=== PATIENT | female | born 2000 | race Caucasian/White ===

== ENCOUNTER 2024-03-24 11:30 | Observation (INO) | payer MEDICAID, OTHER ==
[2024-03-24 12:33] LABS: Fern Testing Negative
[2024-03-24] MEDS ORDERED: PREN-96 PO (13:02)
== END 2024-03-24 13:54 | disposition home or self-care (01) ==
LOC: UNDOADMOB 11:30 → LDRP 11:30
PROVIDERS: ADMIT Obstetrics & Gynecology; ATTEND Obstetrics & Gynecology
DX: O42.92 Full-term premature rupture of membranes, unspecified as to length of time between rupture and onset of labor (principal); O62.9 Abnormality of forces of labor, unspecified; O26.893 Other specified pregnancy related conditions, third trimester; N89.8 Other specified noninflammatory disorders of vagina; Z3A.38 38 weeks gestation of pregnancy
CPT/HCPCS: 59025; 76818; 81002; 94760; G0378; Q0114

== ENCOUNTER 2024-04-08 05:11 | Observation (INO) | payer MEDICAID ==
[~2024-04-08 05:11] MED LIST: PREN-96 PO
== END 2024-04-08 12:31 | disposition home or self-care (01) ==
LOC: LDRP 10:05
PROVIDERS: ADMIT Obstetrics & Gynecology; ATTEND Obstetrics & Gynecology
DX: O48.0 Post-term pregnancy (principal); O26.893 Other specified pregnancy related conditions, third trimester; N89.8 Other specified noninflammatory disorders of vagina; Z3A.40 40 weeks gestation of pregnancy
CPT/HCPCS: 59025; 76818; 81002; G0378

== ENCOUNTER 2024-04-10 19:25 | Observation (INO) | payer MEDICAID ==
[~2024-04-10] VITALS: Ht 162.6 cm; Wt 88.5 kg
== END 2024-04-10 22:03 | disposition home or self-care (01) ==
LOC: LDRP 19:25
PROVIDERS: ADMIT Obstetrics & Gynecology; ATTEND Obstetrics & Gynecology
DX: O48.0 Post-term pregnancy (principal); Z3A.40 40 weeks gestation of pregnancy; Z79.899 Other long term (current) drug therapy; Z98.890 Other specified postprocedural states
CPT/HCPCS: 59025; 76818; 94760; G0378

== ENCOUNTER 2024-04-12 08:28 | Inpatient (IN) | payer MEDICAID ==
[~2024-04-12] VITALS: Ht 165 cm; Wt 89.4 kg
[2024-04-12] MEDS ORDERED: BUTORPHANOL TARTRATE 2 MG/1 ML VIAL IV PRN (18:00)
[2024-04-12] MEDS ORDERED: LIDOCAINE 2%HCL (LOCAL ANESTH.) INJ 20ML MDV IJ PRN (18:00)
[2024-04-12 19:18] LABS: Basophils # (auto) 0 10 ^3/uL (0-0.2); Basophils % (auto) 0.2 % (0.0-2.0); Eosinophils # (auto) 0.1 10 ^3/uL (0-0.8); Eosinophils % (auto) 0.5 % (0.0-7.0); Hematocrit 37.1 % (36.0-46.0); Hemoglobin 12.3 g/dL (12.2-16.2); Lymphocytes # (auto) 2.3 10 ^3/uL (0.4-5.4); Lymphocytes % (auto) 20.8 % (10.0-50.0); Mean Corpuscular Hemoglobin 27.5 pg (28.0-32.0); Mean Corpuscular Hgb Conc. 33.1 g/dL (32.0-36.0); Mean Corpuscular Volume 82.9 fL (80.0-100.0); Monocytes # (auto) 0.7 10 ^3/uL (0-1.3); Monocytes % (auto) 6.4 % (0.0-12.0); Neutrophils # (auto) 8.1 10 ^3/uL (1.6-8.6); Neutrophils % (auto) 72.1 % (37.0-80.0); Nucleated Red Blood Cells % 0.1 %; Red Blood Cells 4.47 10^6/uL (4.0-5.20); Red Cell Distribution Width 14.5 % (11.8-14.3); White Blood Cell 11.3 10^3/uL (4.4-10.8)
[2024-04-12 19:32] LABS: Alanine Aminotransferase 10 U/L (7-40); Albumin 3.8 g/dL (3.2-4.8); Alkaline Phosphatase 128 U/L (46-116); Anion Gap 9 (5-15); Aspartate Aminotransferase 12 U/L (13-40); Calcium 9.4 mg/dL (8.5-10.1); Carbon Dioxide 19 mmol/L (20-30); Chloride 109 mmol/L (98-107); Glucose 89 mg/dL (74-106); Potassium 3.8 mmol/L (3.5-5.1); Sodium 137 mmol/L (136-145)
[2024-04-12 19:33] LABS: Bilirubin, Total 0.3 mg/dL (0.2-1.0); Total Protein 6.5 g/dL (5.7-8.2)
[2024-04-12 19:35] LABS: BUN/Creatinine Ratio 9.3 (10.0-20.0); Blood Urea Nitrogen < 5 mg/dL (9-23)
[2024-04-12 19:36] LABS: INR 0.92 (0.9-1.15); Partial Thromboplastin Time 23.2 SEC (24.5-34.5); Prothrombin Time 9.8 sec (9.3-11.8)
[2024-04-12] MEDS: LACTATED RINGER'S 1,000 ML IV SCH (19:43)
[2024-04-12] MEDS: PENICILLIN G POT 5MIL/D5 50ML 50 ML IV ONE (20:38)
[2024-04-12 21:48] LABS: Urine Bacteria FEW /hpf (None Seen); Urine Blood Negative /uL (Negative); Urine Clarity Turbid (Clear); Urine Color Colorless (Yellow); Urine Protein, UAD Negative (Negative); Urine Specific Gravity 1.008 (1.001-1.035); Urine Urobilinogen Normal (Negative); Urine WBC 17 /hpf (0 - 5)
[2024-04-12 21:59] LABS: Amphetamine Screen, Urine Neg (NEGATIVE); Barbiturate Scree,Urine Neg (NEGATIVE); Benzodiazephine Screen, Urine Neg (NEGATIVE)
[2024-04-12 22:00] LABS: Cannabinoid Screen, Urine Neg (NEGATIVE); Cocaine Screen, Urine Neg (NEGATIVE); Opiate Scree,Urine Neg (NEGATIVE); Phencyclidine Screen, Urine Neg (NEGATIVE)
[2024-04-13] MEDS: PENICILLIN G POTASSIUM 2,500,000 UNITS in D5W 5% 50 ML IV SCH (00:27)
[2024-04-13] MEDS: WITCH HAZEL-GLYCERIN PAD TOP PRN (00:27)
[2024-04-13] MEDS: PHISODERM TOP SOLN 240ML BTL TOP PRN (00:27)
[2024-04-13] MEDS: DERMOPLAST 60ML BOTTLE TOP PRN (00:27)
[2024-04-13] MEDS: miSOPROStol 50 MCG per PRE-CUT 1/2 TAB PO PRN (01:06)
[2024-04-13] MEDS: BUTORPHANOL TARTRATE 2 MG/1 ML VIAL IV PRN (04:43)
[2024-04-13] MEDS: NALOXONE HCL 0.4 MG/ML VIAL IV ONE (06:15)
[2024-04-13] MEDS: ceFAZolin 2 GM/D5W50ml 50 ML IV ONE (16:16)
[2024-04-13] MEDS: ACETAMINOPHEN 500 MG TAB PO ONE (16:16)
[2024-04-13] MEDS ORDERED: ACETAMINOPHEN 325 MG TAB PO PRN (17:45)
[2024-04-13] MEDS ORDERED: ONDANSETRON ODT 4 MG TAB PO PRN (17:45)
[2024-04-13] MEDS: IBUPROFEN 600 MG TAB PO PRN (18:07)
[2024-04-13] MEDS: LACT. RINGERS/OXYTOCIN 20UNITS 500 ML IV ONE ×2 (18:19→18:20)
[2024-04-13] MEDS: fentaNYL CITRATE 100 MCG/2 ML VL IV ONE (18:21)
[2024-04-13] MEDS: ROPIVACAINE HCL 200 ML ONE (18:24)
[2024-04-13] MEDS: ePHEDrine SULFATE 50 MG/ML AMP IV ONE (18:25)
[2024-04-13 19:00] VITALS: BP 112/80; PULSE 104; RESP 18; TEMP 99.1; O2SAT 96
[2024-04-13] MEDS: LIDOCAINE HCL 2 %PF INJ 10ML AMP IJ ONE (19:03)
[2024-04-13] MEDS: Lidocaine W-Epinephrine 1.5%-1:200,000 INJ 10ml Vial ONE (19:03)
[2024-04-13] MEDS: LACTATED RINGER'S 1,000 ML IV ONE (19:05)
[2024-04-13] MEDS: DOCUSATE SOD 100 MG CAP PO SCH (22:04)
[2024-04-13 23:00] VITALS: BP 128/82; PULSE 109; RESP 17; TEMP 98.5; O2SAT 97
[2024-04-14] MEDS: MEASLES, MUMPS & RUBELLA VAC(MMRII) 0.5ML SC ONE (02:15)
[2024-04-14] MEDS: ceFAZolin 1GM/50ML 50 ML IV SCH (02:43)
[2024-04-14 03:15] VITALS: BP 122/81; PULSE 99; RESP 17; TEMP 98.1; O2SAT 97
[2024-04-14 06:06] LABS: RPR Non Reactive (Non Reactive)
[2024-04-14 07:06] VITALS: BP 124/73; PULSE 88; RESP 17; TEMP 98.5; O2SAT 96
[2024-04-14 10:55] VITALS: BP 120/72; PULSE 94; RESP 17; TEMP 98.4; O2SAT 98
[2024-04-14 14:39] VITALS: BP 125/68; PULSE 85; RESP 17; TEMP 98.6; O2SAT 98
[2024-04-14 19:00] VITALS: BP 131/75; PULSE 84; RESP 18; TEMP 98.6; O2SAT 97
[2024-04-14 23:00] VITALS: BP 112/68; PULSE 64; RESP 16; TEMP 98.5; O2SAT 98
[2024-04-15 03:03] VITALS: BP 119/75; PULSE 74; RESP 16; TEMP 97.8; O2SAT 97
[2024-04-15 07:00] VITALS: BP 126/92; PULSE 54; RESP 18; TEMP 99.4; O2SAT 98
[2024-04-15 09:52] VITALS: BP 128/85; PULSE 67; TEMP 98.4
[2024-04-16 19:06] LABS: Treponema pallidum Ab (FTA-Ab) Non Reactive (Non Reactive)
== END 2024-04-15 10:45 | disposition home or self-care (01) | DRG 560 ==
LOC: UNDOADMOB 16:04 → LDRP 16:04 → OBSVTOIN 17:45 → INTOOBSV 17:45 → OBSVTOIN 17:47 → LDRP 17:47
PROVIDERS: ADMIT Obstetrics & Gynecology; ATTEND Obstetrics & Gynecology
PROC: 10E0XZZ Delivery of Products of Conception, External Approach (ICD-10-PCS; principal; 2024-04-13)
PROC: 3E0DXGC Introduction of Other Therapeutic Substance into Mouth and Pharynx, External Approach (ICD-10-PCS; 2024-04-13)
PROC: 3E0R3BZ Introduction of Anesthetic Agent into Spinal Canal, Percutaneous Approach (ICD-10-PCS; 2024-04-13)
PROC: 00HU33Z Insertion of Infusion Device into Spinal Canal, Percutaneous Approach (ICD-10-PCS; 2024-04-13)
PROC: 0HQ9XZZ Repair Perineum Skin, External Approach (ICD-10-PCS; 2024-04-13)
PROC: 0UQMXZZ Repair Vulva, External Approach (ICD-10-PCS; 2024-04-13)
DX: O48.0 Post-term pregnancy (principal); Z37.0 Single live birth; O70.0 First degree perineal laceration during delivery; O99.824 Streptococcus B carrier state complicating childbirth; Z3A.40 40 weeks gestation of pregnancy; O71.82 Other specified trauma to perineum and vulva
CPT/HCPCS: 36415; 59025; 59200; 59409; 62282; 76818; 80053; 80307; 81001; 81002; 85025; 85610; 85730; 86592; 86850; 86900; 86901; 94760; 94762; 96360; 96361; 96365; 96366; 96372; 96374; G0378; J2540; J2590; J7060

== ENCOUNTER 2025-09-03 16:32 | Emergency (ER) | payer MEDICAID ==
[~2025-09-03] VITALS: Ht 162.6 cm; Wt 89.7 kg
[2025-09-03 16:57] LABS: Hematocrit 42.5 % (36.0-46.0); Hemoglobin 14.6 g/dL (12.2-16.2); Mean Corpuscular Hemoglobin 28.8 pg (28.0-32.0); Mean Corpuscular Volume 83.9 fL (80.0-100.0); Nucleated Red Blood Cells % 0.1 %
[2025-09-03 17:15] LABS: Alanine Aminotransferase 12 U/L (7-40); Albumin 4.1 g/dL (3.2-4.8); Alkaline Phosphatase 66 U/L (46-116); Anion Gap 11 (5-15); BUN/Creatinine Ratio 10.4 (10.0-20.0); Calcium 9.1 mg/dL (8.7-10.4); Carbon Dioxide 23 mmol/L (20-31); Chloride 106 mmol/L (98-107); Potassium 3.7 mmol/L (3.5-5.1); Sodium 140 mmol/L (136-145); Total Protein 6.9 g/dL (5.7-8.2)
--- NOTE | 2025-09-03 17:45 | DVH ---
RENAL ULTRASOUND History: L flank Comparison: None Technique: Multiple real-time sonographic images of the kidney and bladder were obtained in conjunction with Doppler imaging. Findings: The right kidney measures 11.4 cm and demonstrates no evidence of hydronephrosis, perinephric fluid collection, or shadowing stone. The left kidney measures 11.6 cm and demonstrates no evidence of hydronephrosis, perinephric fluid collection, or shadowing stone. Urinary bladder: Decompressed by Worrell catheter. Impression: No sonographic for hydronephrosis.
[2025-09-03 17:58] LABS: Bilirubin, Total 0.3 mg/dL (0.2-1.0); Blood Urea Nitrogen 7 mg/dL (9-23); Glucose 113 mg/dL (74-106)
[2025-09-03 17:58] LABS: Urine Amorphous Crystal FEW /hpf (None Seen); Urine Protein, UAD Negative (Negative)
[2025-09-03 18:08] LABS: Lactic Acid w/Reflex 2.1 mmol/L (0.4-2.0)
--- NOTE | 2025-09-03 18:15 | ED.PDOC ---
General HPI Comments HPI: 24 y/o F, presents to the ED for CC of abdominal pain. Patient states, that she has been experiencing LUQ abdominal pain onset, 0500 this morning (09/03/25). Patient reports, that she was seen yesterday by her PCP and was told to be [id number] ; unsure if symptoms maybe related. 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 Patient denies active bleeding, hematuria, fever, chills, nausea, or vomiting. No other symptoms or modifying factors are present at this time. Denies any fall or trauma. Patient has a appointment with her doctor Mary in few days. Initial Vitals BP: HR: RR: O2 Sat: Temp: Past Medical history: DENIES ANY Past Surgical history: DENIES ANY Medications: DENIES ANY Social History: Denies smoking, ETOH, and drug use. Allergies: NKDA HPI: Poor Historian. Pain has essentially resolved prior to my evaluation. Patient is here just to make sure that her is okay in the setting of this left upper quadrant pain that started yesterday but has a essentially resolved by the time I went to see the patient. REVIEW OF SYSTEMS: CONSTITUTIONAL: Denies acute: fever, diaphoresis, chills, generalized weakness. HEAD: Denies acute: headache, photophobia Eyes: Denies acute: Double vision, vision loss, eye pain, eye discharge. EARS: Denies acute: tinnitus, hearing loss, ear discharge, ear pain, THROAT: Denies acute: sore throat, swelling, difficulty swallowing , pain with swallowing, change in voice. NECK: Denies acute: neck pain, neck swelling, stiff neck. HEART: Denies acute : chest pain, palpitations, LUNGS: Denies acute: SOB, wheezing, cough, hemoptysis ABDOMEN: Denies acute: Nausea, Vomiting, diarrhea, melena , hematemesis, hematochezia SKIN: Denies acute: rash, redness, lesions, itchiness. EXTREMITIES: Denies acute: calf pain, numbness, tingling, weakness, denies pain in extremity. Denies acute: Low back pain. Neuro: Denies acute: focal neurological deficit, motor or sensory focal neurological deficit, tremors, seizure like activity, confusion, dizziness, change in mental status, loss of bowel or bladder function, cauda equina like symptoms. : Denies acute: dysuria, hematuria, flank pain, increase in urinary frequency. PSYCH: Denies acute: hallucination, suicidal ideation, homicidal ideation. FEMALE: Denies acute: abnormal vaginal bleeding, foul odor, unusual discharge. PHYSICAL EXAM: General: ----no----acute distress, awake and alert. Head: normocephalic, atraumatic. No raccoon's eyes, no matute sign. Neck: supple, trachea is midline, no swelling. Throat: Normal phonation. Eyes:, no erythema, no purulent discharge, no proptosis, no icterus. Heart: regular rate, regular rhythm, no significant murmur appreciated. Lungs: no apparent respiratory distress, Able to speak in full sentences. No wheezing, no rhonchi, no crackles. No stridors Clear to auscultation bilaterally. Abdomen: Focal left upper quadrant tender to palpation, non distended, soft, no guarding, no rebound, + bowel sounds. Patient has absolutely no lower quadrant or pelvic pain or tenderness to palpation. Neuro: Awake, Alert, oriented to name, self, situation, follows commands GCS=15. Speech is normal. Skin: no petechia, no purpura, no cyanosis, non-pale, not jaundice. Lower extremities: --no - Pitting edema no deformity, no focal swelling, no calf TTP. Makes eye contact. moves all four extremities. Face: no apparent facial droop. No CVA tenderness to percussion bilaterally. Ambulating in the ED independently. ED COURSE: DISCLAIMER: This medical document was created using an electronic medical record system with voice recognition software and computerized dictation system. Although this document has been carefully reviewed, there might still be some phonetic and typographical errors. Occasional wrong-word or "sound-alike" substitutions may have occurred due to the inherent limitations of voice recognition software. These areas are purely typographical due to imperfections of the software programs and do not reflect any compromise in the patient's medical care. Please read the chart carefully and recognize, using context, where these substitutions have occurred. Chief Complaint: Flank Pain Time Seen by MD: 18:25 Reviewed notes: Nurses Notes, Medications, Allergies Allergies: Coded Allergies: NO KNOWN ALLERGIES (Unverified , 04/10/24) Home Meds Active Scripts Cephalexin Monohydrate (Cephalexin) 500 Mg Cap, 500 MG PO Q8HR for 5 Days, #15 CAP Prov:CONSTANCE GALLARDO DO 09/03/25 Reported Medications Vit W/ Ferrous Fumara ( One Daily) Daily Tab, 1 TAB PO DAILY, #90 TAB 3 Refills 03/24/24 Information Source: Patient Mode of Arrival: Ambulatory Prehospital treatment: None History of: None Location: (R) Flank, (L)Flank Modifying factors: None associated signs and symptoms: None Was a procedure done? Was a procedure done?: No Differential Diagnosis Kidney stone (Female): Other (DDX include Diverticulitis, colitis, gastroenteritis, acute abdomen, SBO, enteritis, constipation, volvulus, appendicitis, Gallbladder disease, choledocolithiasis, ascending cholangitis, p ancreatitis, intraAbdominal mass/neoplasm, hepatitis, UTI, pylonephritis, kidney stone, aneurysm, dissection, Inflammatory bowel disease, gastroparesis, ischemic bowel,,,,,,Food poisoning, bacterial/parasitic/viral etiology, trauma, diabetes DKA,ovarian torsion, ovarian cyst/mass, tubo-ovarian abscess, , ectopic , PID, STD.) Urinary Problem (Female): Intrauterine , Urolithiasis, UTI X-Ray, Labs, Meds, VS Vital Signs Date Time Temp Pulse Resp B/P (MAP) Pulse Ox O2 Delivery O2 Flow Rate FiO2 09/03/25 20:37 98.4 111 18 137/83 (101) 99 98.4 09/03/25 17:25 98.4 96 18 157/88 (111) 100 98.4 09/03/25 17:25 Room Air* 0 21 09/03/25 17:25 96 18 100 Room Air 09/03/25 16:34 97.5 96 16 146/98 99 97.5 Lab Test 09/03/25 19:12 09/03/25 17:16 09/03/25 16:46 Range/Units Lactic Acid Level 1.6 2.1 *H 0.4-2.0 mmol/L Urine Color Colorless Yellow Urine Clarity Clear Clear Urine pH 6.5 5.0-9.0 Urine Specific Cameron 1.009 1.001-1.035 Urine Protein Negative Negative Urine Ketones Negative Negative Urine Blood Negative Negative /uL Urine Nitrite Negative Negative Urine Bilirubin Negative Negative Urine Urobilinogen Normal Negative mg/dL Urine Leukocyte Esterase Negative Negative /uL Urine RBC <1 0 - 4 /hpf Urine Microscopic WBC 1 0-5 /HPF Urine Squamous Epithelial Cells Few <5 /hpf Urine Amorphous Crystals Few None Seen /hpf Urine Bacteria Few H None Seen /hpf Urine Glucose Normal Normal mg/dL White Blood Count 12.3 H 4.4-10.8 10^3/uL Red Blood Count 5.07 4.0-5.20 10^6/uL Hemoglobin 14.6 12.2-16.2 g/dL Hematocrit 42.5 36.0-46.0 % Mean Corpuscular Volume 83.9 80.0-100.0 fL Mean Corpuscular Hemoglobin 28.8 28.0-32.0 pg Mean Corpuscular Hemoglobin Concent 34.3 32.0-36.0 g/dL Red Cell Distribution Width 13.1 11.8-14.3 % Platelet Count 301 140-450 10^3/uL Mean Platelet Volume 7.2 6.9-10.8 fL Neutrophils (%) (Auto) 69.4 37.0-80.0 % Lymphocytes (%) (Auto) 22.4 10.0-50.0 % Monocytes (%) (Auto) 6.4 0.0-12.0 % Eosinophils (%) (Auto) 1.1 0.0-7.0 % Basophils (%) (Auto) 0.7 0.0-2.0 % Neutrophils # (Auto) 8.5 1.6-8.6 10 ^3/uL Lymphocytes # (Auto) 2.8 0.4-5.4 10 ^3/uL Monocytes # (Auto) 0.8 0-1.3 10 ^3/uL Eosinophils # (Auto) 0.1 0-0.8 10 ^3/uL Basophils # (Auto) 0.1 0-0.2 10 ^3/uL Nucleated Red Blood Cells 0.1 % Sodium Level 140 136-145 mmol/L Potassium Level 3.7 3.5-5.1 mmol/L Chloride Level 106 98-107 mmol/L Carbon Dioxide Level 23 20-31 mmol/L Anion Gap 11 5-15 Blood Urea Nitrogen 7 L 9-23 mg/dL Creatinine 0.67 0.550-1.02 mg/dL Glomerular Filtration Rate Calc 127 >90 mL/min BUN/Creatinine Ratio 10.4 10.0-20.0 Serum Glucose 113 H 74-106 mg/dL Calcium Level 9.1 8.7-10.4 mg/dL Total Bilirubin 0.3 0.2-1.0 mg/dL Aspartate Amino Transferase (AST) 14 13-40 U/L Alanine Aminotransferase (ALT) 12 7-40 U/L Alkaline Phosphatase 66 46-116 U/L Total Protein 6.9 5.7-8.2 g/dL Albumin 4.1 3.2-4.8 g/dL [place] [id number] Ph: [phone] DIAGNOSTIC IMAGING Diagnostic Imaging Report : [id number] Signed PATIENT: WILD ELIZALDE ACCT: [id number] UNIT: [id number] : 2000 LOC: ER ROOM / BED: / AGE / SEX: 24 / F ADM STATUS: REG ER SERVICE 1641 ORDERING PHYSICIAN: CONSTANCE GALLARDO DO PROCEDURE(s): KIDUS - KIDNEY REASON: L flank ORDER NUMBER(s): [id number], ACCESSION NUMBER(s): [id number] RENAL ULTRASOUND History: L flank Comparison: None Technique: Multiple real-time sonographic images of the kidney and bladder were obtained in conjunction with Doppler imaging. Findings: The right kidney measures 11.4 cm and demonstrates no evidence of hydronephrosis, perinephric fluid collection, or shadowing stone. The left kidney measures 11.6 cm and demonstrates no evidence of hydronephrosis, perinephric fluid collection, or shadowing stone. Urinary bladder: Decompressed by Worrell catheter. Impression: No sonographic for hydronephrosis. ATED BY: TOMMIE MAURICE MD DICTATED DATE/TIME: 09/03/251747 SIGNED BY: TOMMIE MAURICE MD SIGNED DATE/TIME: 09/03/251747 CC: Time of 1ST Reevaluation: 18:55 Reevaluation 1ST: Unchanged Patient Education/Counseling: Diagnosis, Treatment Family Education/Counseling: No Family Present Comments MDM: patient presented with the above HPI.-abdominal pain----workup was initiated. patient was found with the above mentioned diagnosis. the following medications were ordered: please refer to order lists of meds and tests obtained by myself Dr. Gallardo. Patient ED course and VS have been stabilized. Patient has been reassessed in [facility] ED and remained in a stable condition. Pertinent incidental findings were discussed with the patient and/or family. Patient/family voices understanding and is agreeable with plan. Patient has been observed in the ED adequate length of time to insure improvement/stability. Escalation of care considered: Consideration of escalation to observation or admission Patient was DISCHARGED home in a stable condition. All the reports of any imaging studies that were ordered by myself were reviewed by myself. SEPSIS Sepsis Screen Date sepsis recognized/suspect: Sep 03, 2025 Time Sepsis recognized/suspect: 1636 Recent Procedure: No On Antibiotic Therapy: No Respiratory Rate >20: No Heart Rate >90: Yes Temp<36 C (96.8 F) or >38.3 C: No SBP <90 or MAP <65 mmHG: No New Acute Mental Status Change: No Is the patient on CPAP, BIPAP,: No Physician Orders Human Relations Manager (09/03/25 ) Kidney (09/03/25 16:41) Vital Signs Date Time Temp Pulse Resp B/P (MAP) Pulse Ox O2 Delivery O2 Flow Rate FiO2 09/03/25 20:37 98.4 111 18 137/83 (101) 99 98.4 09/03/25 17:25 98.4 96 18 157/88 (111) 100 98.4 09/03/25 17:25 Room Air* 0 21 09/03/25 17:25 96 18 100 Room Air 09/03/25 16:34 97.5 96 16 146/98 99 97.5 Laboratory Tests Test 09/03/25 16:46 09/03/25 19:12 Lactic Acid Level 2.1 mmol/L (0.4-2.0) *H 1.6 mmol/L (0.4-2.0) White Blood Count 12.3 10^3/uL (4.4-10.8) H Departure 1 Departure Time of Disposition: 18:37 Impression: Primary Impression: Left upper quadrant pain Additional Impression: Bacteriuria Disposition: 01 HOME / SELF CARE / HOMELESS Condition: Stable Additional Instructions: Additional instructions: Please read all instructions provided in this packet carefully. You MUST follow-up with your primary care/family doctor in 1 to 2 days. If you are unable to see your primary care/family doctor, please return to our emergency room for re-assessment and re-evaluation in 1 to 2 days. Return to the emergency room here in our facility or to the nearest ER [facility] if your symptoms change or worsen. CONSULTATIONS: you MUST Follow-up for consultation as soon as possible with: Dr. DALLAS Juárez doctor as scheduled in few days. You MUST call the consultants office yourself to make an appointment. You may need to arrange that through your insurance and/or your primary/family doctor. If you are unable to see the law firm consultant in 1 to 2 days, you must return to our emergency room (or any other ER of your choice) for re-assessment and re- evaluation. Adequate fluid hydration. Although you have been discharged from the Emergency Department, this does not mean that you have a "clean bill of health". No definitive diagnosis for your symptoms has been made today. It is possible that you are in the process of developing a serious illness. This is why you must return to the ED without fail if any new or worsening symptoms develop. Absolute pelvic rest. Below is a copy of your radiological report for follow up: [place] [address] Ph: [phone] DIAGNOSTIC IMAGING Diagnostic Imaging Report : [id number] Signed PATIENT: WILD ELIZALDE ACCT: [id number] UNIT: [id number] : 2000 LOC: ER ROOM / BED: / AGE / SEX: 24 / F ADM STATUS: REG ER SERVICE 1641 ORDERING PHYSICIAN: CONSTANCE GALLARDO DO PROCEDURE(s): KIDUS - KIDNEY REASON: L flank ORDER NUMBER(s): [id number], ACCESSION NUMBER(s): [id number] RENAL ULTRASOUND History: L flank Comparison: None Technique: Multiple real-time sonographic images of the kidney and bladder were obtained in conjunction with Doppler imaging. Findings: The right kidney measures 11.4 cm and demonstrates no evidence of hydronephrosis, perinephric fluid collection, or shadowing stone. The left kidney measures 11.6 cm and demonstrates no evidence of hydronephrosis, perinephric fluid collection, or shadowing stone. Urinary bladder: Decompressed by Worrell catheter. Impression: No sonographic for hydronephrosis. ATED BY: TOMMIE MAURICE MD DICTATED DATE/TIME: 09/03/251747 SIGNED BY: TOMMIE MAURICE MD SIGNED DATE/TIME: 09/03/251747 CC: e-Prescriptions Cephalexin Monohydrate (Cephalexin) 500 Mg Cap 500 MG PO Q8HR for 5 Days, #15 CAP Prov: CONSTANCE GALLARDO DO 09/03/25 Discharged With: Self Critical Care Note Critical Care Time?: No I personally scribed for CONSTANCE GALLARDO DO ([email or web address]) on 09/03/25 at 18:15. Electronically submitted by Stella Noyola ([email or web address]). I personally scribed for CONSTANCE GALLARDO DO ([email or web address]) on 09/03/25 at 18:23. Electronically submitted by Stella Noyola ([email or web address]). I personally scribed for CONSTANCE GALLARDO DO ([email or web address]) on 09/03/25 at 18:35. Electronically submitted by Stella Noyola ([email or web address]). I personally scribed for CONSTANCE GALLARDO DO ([email or web address]) on 09/03/25 at 18:59. Electronically submitted by Stella Noyola ([email or web address]). CONSTANCE GALLARDO DO Sep 03, 2025 18:15
[2025-09-03] MEDS ORDERED: CEPH500C PO (18:40)
[2025-09-03] MEDS: SODIUM CHLORIDE 0.9% 500 ML IV ONE (18:57)
[2025-09-03 20:37] VITALS: BP 137/83; PULSE 111; RESP 18; TEMP 98.4; O2SAT 99
== END 2025-09-03 20:55 | disposition home or self-care (01) ==
LOC: ER 16:32
DX: O26.891 Other specified pregnancy related conditions, first trimester (principal); Z3A.01 Less than 8 weeks gestation of pregnancy; R82.71 Bacteriuria
CPT/HCPCS: 36415; 76775; 80053; 81001; 83605; 85025; 96360; 99284; J7040